=== PATIENT | female | born 1985 | race Caucasian/White ===

== ENCOUNTER 2019-03-01 09:00 | Outpatient (RCR) | payer MEDICAID, SELFPAY ==
--- NOTE | 2019-03-01 09:10 | BH.SGPN.GN ---
Behaviors/Verbalizations/Mental Status: [] Eye contact is poor. Motor activity is appropriate. Appearance is casual. Speech is Appropriate. Mood is anxious. Affect is congruent. Thoughts are linear and logical. No evidence of psychosis. Reviewed daily check in sheet and no reports of suicidal ideations or intent. Client Response/Progress/Benefit: [] Pt only spoke when prompted. Restless. Appeared overwhelmed with group as this was her first day. Shared very little stating that she was here to work on her anxiety. Discussed how anxiety was impacting her daily functioning. Attentive. No progress noted. Will continue in IOP to prevent decompensation, increase coping rachel for anxiety, and provided support. Narrative Note: []
--- NOTE | 2019-03-01 10:15 | BH.SGPN.GN ---
Behaviors/Verbalizations/Mental Status: []Client alert and oriented, casually dressed and well groomed. Eye contact good. Motor activity restless-using a stress ball throughout session. Speech within normal limits. Affect constricted, mood anxious. Thoughts linear, logical, no signs of hallucinations or delusions. Client Response/Progress/Benefit: []Client responded well to session, primarily an observatory participant. Client indicated connecting with the topic of cognitive distortions through nodding. Client listened to discussion of how negative thoughts impact one?s mental health and relationships. Client agreed with peers that cognitive distortions lead to increased symptoms and cause one to feel worse about themselves. Client was attentive as the group defined and reflected upon various types of distortions. Client raised her hand when the group discussed magnification and jumping to conclusions. Client benefitted from increasing awareness of cognitive distortions and how they can impact emotions and behaviors. Client?s first day of IOP. Client to continue IOP to reduce symptoms and increase mood stability.
--- NOTE | 2019-03-01 11:20 | BH.SGPN.GN ---
Behaviors/Verbalizations/Mental Status: [Client alert and oriented, casually dressed, hygiene well tended to. Eye contact good. Motor activity appropriate. Speech within normal limits. Affect congruent, mood dysthymic and anxious. Thoughts linear, logical, no signs of hallucinations or delusions.] Client Response/Progress/Benefit: [Pt responded well to session, providing input throughout. Pt engaged in the discussion reviewing various types of distortions. Did well to connect with the potential impact of distortions on mental health. Shared connecting with distortions of catastrophizing and noted that it often skews her logical thinking abilities. Pt helped the group practice challenging the example cognitive distortions and did well to identify ways to reframe negative thoughts. Pt stated she connected with the emotions described in relation to use of distorted thoughts, sharing that she struggles with focusing on the negative more when she is having a hard day. Appeared to benefit from practicing thought challenging and gaining awareness of the effort it takes to reframe negative thoughts. Progress noted in increased ability to engage despite being first day in tx. Pt to continue IOP to reduce anxiety and depression, prevent decompensation, as well as increase healthy coping.] Narrative Note: []
--- NOTE | 2019-03-01 15:17 | BH.COMM ---
Communication Note - Communication with Client Communication Note: Therapist met with client to complete IOP intake paperwork. Therapist answered client's questions and introduced self as client's therapist. Client denies any significant changes since assessment and denies any active suicidal ideations, plan, and intent.
--- NOTE | 2019-03-03 15:02 | BH.COMM ---
Communication Note - Communication with Client Communication Note: Client no called/no showed for her scheduled IOP sessions today. Therapist attempted to call client, but client did not answer. Client did not present with any risks to herself or others when she last attended group on Thursday03/01/19. Client was scheduled to see IOP therapist today for individual session. Due to cancellation, client unable to meet with therapist this week.
--- NOTE | 2019-03-04 12:13 | BH.COMM ---
Communication Note - Communication with Client Communication Note: Client no called/no showed for her scheduled [facility] psychiatry appointment today. Therapist attempted to contact client, but client did not respond or return therapist's call. Therapist discussed with treatment team and it was decided client will be discharged from [facility] due to lack of contact and attendance.
--- NOTE | 2019-03-04 13:15 | BH.DS ---
Discharge Summary - Demographics Date of Admission:: 03/01/19 Discharge Date: 03/04/19 Presenting Problems at Admission:: Client is a 33-year-old female with a history of anxiety and depression per her report. Client sought [facility] services due to a referral from her primary care physician for worsening anxiety since September 2018. At intake, client endorsed multiple daily panic attacks, intrusive thoughts, restlessness, ruminations, avoidance, and isolation. Client's intrusive thoughts revolved around or injury to her children. Client also reported depressive symptoms such as increased sleep, decreased appetite, anhedonia, and hopelessness. Client denied any suicidal ideations, plan, or intent. Client reported her symptoms were interfering with her social, occupational, and familial functioning. Discharge Diagnoses:: Generalized Anxiety Disorder F41.1; Major Depressive Disorder F 33.2 Reason for Discharge:: Client discharged from [facility] due to inability to adhere to the attendance requirements of [facility]. Therapist made multiple efforts to reach out to client, however, client did not return calls. Due to unplanned discharge and client only attending one [facility] session, a treatment plan and psychosocial assessment were not completed. - Treatment Progress During Treatment & Response: No progress to document as client attended [facility] for one day on 03/01/19. Client had cancelled due to her son?s illness once and had two no calls no shows in her first week. Client appeared receptive to treatment as shown by her engagement and contribution in the group sessions on the day she attended. Client was also cooperative and engaged during her intake paperwork. Client is not established with aftercare and this therapist left a voice message for client providing outpatient mental health service options and numbers. These options included: [facility], [facility], and [facility]. Issues Still to be Addressed:: Due to client's lack of attendance in [facility], client and therapist were unable to create a treatment plan and gather psychosocial information. Client could continue to benefit from ongoing individual therapy to reduce depression and anxiety, increase mood stability, and to find ways to better cope with stressors and symptoms. Client can benefit from addressing and coping with her intrusive thinking that reinforces client?s anxiety. Client would likely benefit from learning mindfulness and calming skills, thought challenging, and emotional regulation techniques to better manage her mental health symptoms. Discharge Recommendations/Instructions:: Client encouraged to follow up with her primary care physician, Dr. Cunningham, through the [facility] for continuity of care and medication management. Client was not established with outpatient providers when she started IOP. Therapist called client and left a message providing options for outpatient counseling. Discharge Handout: Complete Discharge Handout with client on aftercare options and continuity of care.
--- NOTE | 2019-03-08 08:15 | BH.COMM_ITS ---
Communication Note - Communication with Client Communication Note: Client no called/no showed for her scheduled [facility] psychiatry appointment today. Therapist attempted to contact client, but client did not respond or return therapist's call. Therapist discussed with treatment team and it was decided client will be discharged from [facility] due to lack of contact and attendance.
--- NOTE | 2019-03-08 08:15 | BH.DS_ITS ---
Discharge Summary - Demographics Date of Admission:: 03/01/19 Discharge Date: 03/04/19 Presenting Problems at Admission:: Client is a 33-year-old female with a history of anxiety and depression per her report. Client sought [facility] services due to a referral from her primary care physician for worsening anxiety since September 2018. At intake, client endorsed multiple daily panic attacks, intrusive thoughts, restlessness, ruminations, avoidance, and isolation. Client's in trusive thoughts revolved around or injury to her children. Client also reported depressive symptoms such as increased sleep, decreased appetite, anhedonia, and hopelessness. Client denied any suicidal ideations, plan, or intent. Client reported her symptoms were interfering with her social, occupational, and familial functioning. Discharge Diagnoses:: Generalized Anxiety Disorder F41.1; Major Depressive Disorder F 33.2 Reason for Discharge:: Client discharged from [facility] due to inability to adhere to the attendance requirements of [facility]. Therapist made multiple efforts to reach out to client, however, client did not return calls. Due to unplanned discharge and client only attending one [facility] session, a treatment plan and psychosocial assess ment were not completed. - Treatment Progress During Treatment & Response: No progress to document as client attended [facility] for one day on 03/01/19. Client had cancelled due to her son?s illness once and had two no calls no shows in her first week. Client appeared receptive to treatment as shown by her engagement and contribution in the group sessions on the day she attended. Client was also cooperative and engaged during her intake paperwork. Client is not established with aftercare and this therapist left a voice message for client providing outpatient mental health service options and numbers. These options included: [facility], [facility], and [facility]. Issues Still to be Addressed:: Due to client's lack of attendance in [facility], client and therapist were unable to create a treatment plan and gather psychosocial information. Client could continue to benefit from ongoing individual therapy to reduce depression and anxiety, increase mood stability, and to find ways to better cope with stressors and symptoms. Client can benefit from addressing and coping with her intrusive thinking that reinforces client?s anxiety. Client would likely benefit from learning mindfulness and calming skills, thought challenging, and emotional regulation techniques to better manage her mental health symptoms. Discharge Recommendations/Instructions:: Client encouraged to follow up with her primary care physician, Dr. Cunningham, through the [facility] for continuity of care and medication management. Client was not established with outpatient providers when she started IOP. Therapist called client and left a message providing options for outpatient counseling. Discharge Handout: Complete Discharge Handout with client on aftercare options and continuity of care.
== END 2019-03-04 14:00 | disposition home or self-care (01) ==
LOC: BHIOP 09:00
PROVIDERS: Family Provider Family Medicine; PCP Family Medicine; Referring Provider Psychiatry & Neurology Psychiatry; Visit Provider Psychiatry & Neurology Psychiatry
DX: F41.1 Generalized anxiety disorder (principal); F33.2 Major depressive disorder, recurrent severe without psychotic features
CPT/HCPCS: H2020